=== PATIENT | female | born 1945 | race Hispanic/Latino ===

== ENCOUNTER 2020-04-03 18:25 | Inpatient (IN) | payer OTHER, MEDICARE ==
[~2020-04-03] VITALS: Ht 152.4 cm; Wt 79.1 kg
[2020-04-03 18:52] LABS: BASOPHILS % (AUTO) 0.5 % (0.0-5.0); EOSINOPHILS % (AUTO) 1.9 % (0.0-8.0); HEMATOCRIT 37.7 % (36-48); LYMPHOCYTES % (AUTO) 42.3 % (21.0-51.0); MEAN CORPUSCULAR HEMOGLOBIN 33.6 pg (27.0-33.0); MEAN CORPUSCULAR HGB CONC 32.6 g/dL (32.0-36.0); MONOCYTES % (AUTO) 7.6 % (3.0-13.0); NEUTROPHILS % (AUTO) 47.5 % (40.0-77.0); PLATELET COUNT (AUTO) 208 K/uL (130-400); RED BLOOD CELL COUNT(AUTO) 3.66 MIL/uL (4.00-5.50); RED CELL DISTRIBUTION WIDTH 12.9 % (11.0-15.5); WHITE BLOOD COUNT (AUTO) 10.1 K/uL (4.8-10.8)
[2020-04-03 19:09] LABS: POTASSIUM 3.6 mmol/L (3.5-5.1)
[2020-04-03 19:14] LABS: ALBUMIN 3.8 g/dL (3.5-5.0); BILIRUBIN,TOTAL 0.6 mg/dL (0.2-1.0)
[2020-04-03 19:21] LABS: APPEARANCE,URINE Clear (CLEAR); BILIRUBIN,URINE Negative (NEGATIVE); COLOR,URINE Yellow (YELLOW); GLUCOSE, URINE (UA) Negative (NEGATIVE); KETONES,URINE Negative (NEGATIVE); LEUKOCYTE ESTERASE ,URINE Small (NEGATIVE); NITRATE,URINE Negative (NEGATIVE); OCCULT BLOOD,URINE Negative (NEGATIVE); PROTEIN,URINE Negative (NEGATIVE); UROBILINOGEN,URINE 0.2 mg/dL (0.2-1.0)
[2020-04-03 19:29] LABS: BACTERIA,URINE Rare /HPF (None Seen); SQUAMOUS EPITHELIAL CELL,UR Few /HPF (0-2)
[2020-04-03] MEDS ORDERED: LABETALOL 20 MG/4 ML DISP.SYRIN IV PRN (20:45)
[2020-04-03] MEDS: CEFTRIAXONE SODIUM 1 GM IVP SCH (20:45)
[2020-04-03] MEDS ORDERED: CEFTRIAXONE SODIUM 1 GM ONE (21:56)
[2020-04-03] MEDS ORDERED: SODIUM CHLORIDE 0.9% 50 ML IV ONE (21:57)
[2020-04-03] MEDS ORDERED: ONDANSETRON HCL 4 MG/2 ML VIAL IVP PRN (22:45)
[2020-04-03] MEDS ORDERED: MORPHINE SULFATE 2 MG/ML 1ML SYG IVP PRN (22:45)
[2020-04-04] VITALS (21 sets, daily range): BP systolic 143–203; BP diastolic 63–94
[2020-04-04 03:31] LABS: BASOPHILS % (AUTO) 0.4 % (0.0-5.0); EOSINOPHILS % (AUTO) 2.6 % (0.0-8.0); HEMATOCRIT 33.6 % (36-48); MEAN CORPUSCULAR HEMOGLOBIN 33.2 pg (27.0-33.0); MEAN CORPUSCULAR HGB CONC 32.7 g/dL (32.0-36.0); MEAN CORPUSCULAR VOLUME 101.5 fL (79-99); MONOCYTES % (AUTO) 7.5 % (3.0-13.0); NEUTROPHILS % (AUTO) 45.2 % (40.0-77.0); PLATELET COUNT (AUTO) 166 K/uL (130-400); RED BLOOD CELL COUNT(AUTO) 3.31 MIL/uL (4.00-5.50); RED CELL DISTRIBUTION WIDTH 12.6 % (11.0-15.5); WHITE BLOOD COUNT (AUTO) 7.8 K/uL (4.8-10.8)
[2020-04-04 03:43] LABS: INR 0.95 (0.85-1.15); PARTIAL THROMBOPLASTIN TIME 24.5 SEC (26.3-35.5); PROTHROMBIN TIME 10.3 SEC (9.6-11.6)
[2020-04-04 03:44] LABS: ALBUMIN 3.3 g/dL (3.5-5.0); BILIRUBIN,TOTAL 0.6 mg/dL (0.2-1.0); CREATININE 0.9 mg/dL (0.5-1.5); POTASSIUM 3.3 mmol/L (3.5-5.1); TOTAL PROTEIN, SERUM 6.9 g/dL (6.0-8.3)
[2020-04-04] MEDS: CEFTRIAXONE SODIUM 1 GM IVP SCH ×2 (08:45→20:45)
[2020-04-04] MEDS ORDERED: PRAV40TA3 PO (09:04)
[2020-04-04] MEDS ORDERED: BENA40TA9 PO (09:04)
[2020-04-04] MEDS ORDERED: AMLO2.5T4 PO (09:04)
[2020-04-04] MEDS ORDERED: CETI10TA57 PO (09:04)
[2020-04-04] MEDS ORDERED: CLON0.2T PO (09:04)
[2020-04-04] MEDS ORDERED: METO50TA18 PO (09:04)
[2020-04-04] MEDS ORDERED: LINA290C PO (09:04)
[2020-04-04] MEDS: BENAZEPRIL HCL 10 MG TABLET PO SCH (10:35)
--- NOTE | 2020-04-04 11:20 | NUR ---
ROUNDING PT LEFT FOR 2ND PART OF LEXISCAN
--- NOTE | 2020-04-04 13:30 | NUR ---
ROUNDING PT BACK FROM [facility] Addendum: 04/04/20 at 1500 by KUNAL DAVIS RN RN WRONG PT
[2020-04-04] MEDS ORDERED: HYDRALAZINE HCL 20 MG/ML VIAL IV PRN (14:00)
--- NOTE | 2020-04-04 14:00 | NUR ---
MET WITH PATIENT AT BEDSIDE FOR DC PLANNING STATES LIVES WITH [facility] WHO WILL PROVIDDE TRANSPORT. [place] ONLY, CORRECTION CHART. ROSINA COOK ALSO ON CHART. PATIENT STATES INDEPENDENT, DRIVES, NO DME EXCEPT SHOWER CHAIR, DCP HOME CM TO FOLLOW Addendum: 04/05/20 at 1410 by SONG DICK RN CM Amended: Links added.
--- NOTE | 2020-04-04 14:00 | NUR ---
DR. JEFFREY TIRADO CALLED LEFT ORDERS ON NURSING COMMUNICATION FOR LASER LITHOTRIPSY
--- NOTE | 2020-04-04 17:33 | NUR ---
ROUNDING PT GOING FOR LITHOTRIPSY
[2020-04-04] MEDS ORDERED: LIDOCAINE PF 2% 5ML ABBOJECT ONE (18:26)
[2020-04-04] MEDS ORDERED: FENTANYL CITRATE PF 50 MCG/1 ML 5ML AMP IV ONE (18:27)
[2020-04-04] MEDS ORDERED: MIDAZOLAM HCL 1 MG/ML 2ML VIAL ONE (18:27)
[2020-04-04] MEDS ORDERED: PROPOFOL 10 MG/ML 20ML VIAL IV ONE (18:27)
[2020-04-04] MEDS ORDERED: IOHEXOL-350 50ML VIAL IV ONE (18:34)
[2020-04-04] MEDS ORDERED: ROCURONIUM 10MG/1ML SYR 10 MG/ML ML ONE (18:58)
[2020-04-04] MEDS ORDERED: SUCCINYLCHOLINE 200MG/10ML SYR ONE (18:58)
[2020-04-04] MEDS ORDERED: ONDANSETRON HCL 4 MG/2 ML VIAL ONE (19:00)
[2020-04-04] MEDS ORDERED: EPHEDRINE SULFATE 50 MG/ML AMPULE ONE (19:27)
[2020-04-04] MEDS ORDERED: DEXAMETHASONE SOD PHOSPHATE 10MG/ML 1ML VIAL ONE (20:03)
[2020-04-04] MEDS ORDERED: FENTANYL CITRATE PF 50 MCG/1 ML 2ML VIAL ONE (20:32)
[2020-04-04] MEDS ORDERED: MEPERIDINE-PF 25 MG/ML SYG ONE ×2 (20:34→21:00)
[2020-04-04] MEDS: METOPROLOL TARTRATE 50 MG TAB PO SCH (21:00)
[2020-04-04] MEDS ORDERED: SIMVASTATIN 20 MG TABLET PO SCH (21:00)
--- NOTE | 2020-04-04 21:40 | NUR ---
post op received patient from pacu via bed, awake, alert, ox3, no sob, no c/o pain at this time, ivf infusing well to left ac 20 gauge catheter, f/c uzbek [address] draining light pinkish urine, ble scds in place, teach patient plan of care and expected outcome, both verbalize understanding via teach back
[2020-04-05 00:25] VITALS: BP 135/73
[2020-04-05] MEDS: HYDROCODONE/ACETAMINOPHEN 5/325 MG TAB PO PRN ×2 (03:43→07:35)
[2020-04-05 04:00] VITALS: BP 137/76
[2020-04-05 04:29] LABS: BASOPHILS % (AUTO) 0.1 % (0.0-5.0); EOSINOPHILS % (AUTO) 0.1 % (0.0-8.0); HEMATOCRIT 39.3 % (36-48); LYMPHOCYTES % (AUTO) 8.2 % (21.0-51.0); MEAN CORPUSCULAR HEMOGLOBIN 32.9 pg (27.0-33.0); MEAN CORPUSCULAR HGB CONC 32.3 g/dL (32.0-36.0); MEAN CORPUSCULAR VOLUME 101.8 fL (79-99); MONOCYTES % (AUTO) 0.7 % (3.0-13.0); NEUTROPHILS % (AUTO) 90.6 % (40.0-77.0); PLATELET COUNT (AUTO) 187 K/uL (130-400); RED BLOOD CELL COUNT(AUTO) 3.86 MIL/uL (4.00-5.50); RED CELL DISTRIBUTION WIDTH 12.9 % (11.0-15.5); WHITE BLOOD COUNT (AUTO) 8.7 K/uL (4.8-10.8)
[2020-04-05 04:47] LABS: CREATININE 1.1 mg/dL (0.5-1.5); POTASSIUM 3.2 mmol/L (3.5-5.1)
[2020-04-05] MEDS ORDERED: POTASSIUM CHLORIDE 10% ELIXIR 20 MEQ/15 ML UDCUP PO PRN (05:15)
[2020-04-05] MEDS ORDERED: LIDOCAINE HCL-MPF 1% 2ML VIAL IV PRN (05:15)
[2020-04-05] MEDS ORDERED: POTASSIUM CHLORIDE 20MEQ/100ML 100 ML IV PRN (05:15)
[2020-04-05] MEDS ORDERED: POTASSIUM CHLORIDE 20 MEQ ERTAB PO PRN (05:15)
[2020-04-05] MEDS ORDERED: POTASSIUM CHLORIDE 20 MEQ ERTAB PO ONE (05:18)
--- NOTE | 2020-04-05 07:20 | NUR ---
[facility] CATH discontinued as ordered light cranberry clear urine observed with small clots instructed patient to drink plenty of fluids to keep urine clear and decrease formation of clots voices understanding complains of nausea ,and slight discomfort in bladder area
[2020-04-05] MEDS: BENAZEPRIL HCL 10 MG TABLET PO SCH (07:35)
[2020-04-05] MEDS: METOPROLOL TARTRATE 50 MG TAB PO SCH (07:35)
[2020-04-05 08:21] VITALS: BP 150/76
[2020-04-05] MEDS: CEFTRIAXONE SODIUM 1 GM IVP SCH (08:45)
[2020-04-05] MEDS ORDERED: LINACLOTIDE 290 MCG PO SCH (09:00)
[2020-04-05] MEDS ORDERED: CLONIDINE HCL 0.2 MG TABLET PO SCH (09:00)
[2020-04-05] MEDS ORDERED: AMLODIPINE BESYLATE 2.5 MG TAB PO SCH (09:00)
[2020-04-05 11:49] VITALS: BP 121/46
[2020-04-05 16:33] VITALS: BP 130/49
== END 2020-04-05 16:20 | disposition home or self-care (01) | DRG 661 ==
LOC: DTH 18:25 → EDHIP 20:33 → 3DH 04-04 08:16
PROVIDERS: ADMIT Internal Medicine; ATTEND Internal Medicine
PROC: 0T768DZ Dilation of Right Ureter with Intraluminal Device, Via Natural or Artificial Opening Endoscopic (ICD-10-PCS; principal; 2020-04-04 19:05)
PROC: 0TC68ZZ Extirpation of Matter from Right Ureter, Via Natural or Artificial Opening Endoscopic (ICD-10-PCS; 2020-04-04 19:05)
PROC: BT1D1ZZ Fluoroscopy of Right Kidney, Ureter and Bladder using Low Osmolar Contrast (ICD-10-PCS; 2020-04-04 19:05)
DX: N13.6 Pyonephrosis (principal); I16.0 Hypertensive urgency; N26.1 Atrophy of kidney (terminal); E78.00 Pure hypercholesterolemia, unspecified; E83.52 Hypercalcemia; I10 Essential (primary) hypertension; Z87.442 Personal history of urinary calculi; Z90.710 Acquired absence of both cervix and uterus; Z20.828 Contact with and (suspected) exposure to other viral communicable diseases
CPT/HCPCS: 36415; 71045; 74420; 80048; 80053; 81001; 82306; 82360; 82550; 83970; 84484; 85025; 85610; 85730; 87088; 87426; 93005; A4344; A4354; C1758; C1769; C2617; G0378; J0330; J0696; J1100; J2001; J2175; J2250; J2405; J2704; J3010; J3490; J7030; Q9967; U0003

== ENCOUNTER → 2020-05-15 | Outpatient (CLI) | payer OTHER, MEDICARE ==
[~2020-05-15] MED LIST: AMLO2.5T4 PO; BENA40TA9 PO; CETI10TA57 PO; CLON0.2T PO; LINA290C PO; METO50TA18 PO; PRAV40TA3 PO
== END | disposition home or self-care (01) ==
LOC: LAB 11:20
PROVIDERS: ATTEND Urology
DX: N20.1 Calculus of ureter (principal)
CPT/HCPCS: 36415; 82565; 84520

== ENCOUNTER → 2020-05-16 | Outpatient (CLI) | payer OTHER, MEDICARE ==
[~2020-05-16] MED LIST changes: +IOHEXOL-350 75 ML VIAL IV ONE
== END | disposition home or self-care (01) ==
LOC: RAH 09:11
PROVIDERS: ATTEND Urology
DX: N20.2 Calculus of kidney with calculus of ureter (principal)
CPT/HCPCS: 74400; Q9967

== ENCOUNTER → 2020-08-06 | Outpatient (CLI) | payer OTHER, MEDICARE ==
[~2020-08-06] MED LIST changes: -IOHEXOL-350 75 ML VIAL IV ONE
== END | disposition home or self-care (01) ==
LOC: RAH 10:46
PROVIDERS: ATTEND Urology
DX: N20.0 Calculus of kidney (principal); N13.30 Unspecified hydronephrosis; Z96.0 Presence of urogenital implants
CPT/HCPCS: 76770